=== PATIENT | male | born 1980 | race Caucasian/White ===

== ENCOUNTER 2019-05-03 19:44 | Emergency (ER) | payer SELFPAY ==
[~2019-05-03] VITALS: Ht 175.3 cm; Wt 99.8 kg
[~2019-05-03 19:44] MED LIST: KETO10 PO
[2019-05-03] MEDS ORDERED: Baclofen10 MG PO (20:40)
== END 2019-05-03 20:44 | disposition home or self-care (01) ==
LOC: ER 19:44
DX: S46.001A Unspecified injury of muscle(s) and tendon(s) of the rotator cuff of right shoulder, initial encounter (principal); F17.220 Nicotine dependence, chewing tobacco, uncomplicated; W19.XXXA Unspecified fall, initial encounter
CPT/HCPCS: 73030; 96372; 99283-25; J1170

== ENCOUNTER 2019-12-15 22:30 | Emergency (ER) | payer OTHER ==
[~2019-12-15] VITALS: Ht 175.3 cm; Wt 104.3 kg
[~2019-12-15 22:30] MED LIST changes: +Baclofen10 MG PO
[2019-12-15 23:05] LABS: Source, Urine Clean Catch
[2019-12-15 23:18] LABS: Bilirubin, Urine Neg (Neg); Blood, Urine 5+ (Neg); Glucose Qualitative, Urine Neg (Neg); Ketones, Urine Neg (Neg); Leukocyte Esterase, Urine 3+ (Neg); Nitrite, Urine Neg (Neg); Protein, Urine Neg (Neg); Urobilinogen, Urine NORM (Normal)
[2019-12-15 23:27] LABS: Appearance, Urine Hazy (Clear); Color, Urine Pale Yellow (P-Yellow)
[2019-12-15 23:29] LABS: Red Blood Cells, Urine 0-2 /hpf (0-2); Squamous Epithelial Cells Rare /hpf (Few)
[2019-12-15 23:30] LABS: Bacteria Few /hpf
[2019-12-15] MEDS ORDERED: CEPH500 PO (23:49)
[2019-12-15] MEDS ORDERED: Pyridium100 MG PO (23:49)
== END 2019-12-16 00:10 | disposition home or self-care (01) ==
LOC: ER 22:30
PROVIDERS: Emergency Medicine
DX: N30.91 Cystitis, unspecified with hematuria (principal); Z87.891 Personal history of nicotine dependence
CPT/HCPCS: 81001; 87077; 87086; 87186; 99283; A9270-GY

== ENCOUNTER 2019-12-16 22:19 | Emergency (ER) | payer OTHER ==
[~2019-12-16] VITALS: Ht 175.3 cm; Wt 104.3 kg
[~2019-12-16 22:19] MED LIST changes: +CEPH500 PO; +Pyridium100 MG PO
== END 2019-12-17 01:20 | disposition home or self-care (01) ==
LOC: ER 22:19
DX: N45.1 Epididymitis (principal); F17.220 Nicotine dependence, chewing tobacco, uncomplicated
CPT/HCPCS: 76870; 96372; 99284-25; A9270; A9270-GY; J1885

== ENCOUNTER 2022-08-30 20:26 | Emergency (ER) | payer OTHER ==
[~2022-08-30] VITALS: Ht 175.3 cm; Wt 81.7 kg
[2022-08-31 07:18] LABS: Source, Urine Clean Catch
[2022-08-31 07:21] LABS: Appearance, Urine Clear (Clear); Bilirubin, Urine Neg (Neg); Blood, Urine 1+ (Neg); Color, Urine Yellow (P-Yellow); Glucose Qualitative, Urine Neg (Neg); Ketones, Urine Neg (Neg); Leukocyte Esterase, Urine Neg (Neg); Nitrite, Urine Neg (Neg); Protein, Urine Neg (Neg); Urobilinogen, Urine NORM (Normal)
[2022-08-31 07:26] LABS: BASOPHILS PERCENT AUTO 1 % (0-2); EOSINOPHILS ABSOLUTE AUTO 0.22 K/mm3 (0.00-0.68); EOSINOPHILS PERCENT AUTO 2 % (0-6); Hematocrit 41.3 % (37.0-53.0); Hemoglobin 14.4 g/dL (13.5-17.5); IMMATURE GRAN ABSOLUTE AUTO 0.05 K/mm3 (0.00-0.10); IMMATURE GRAN PERCENT AUTO 0 % (0-1); LYMPHOCYTES PERCENT AUTO 26 % (21-46); MONOCYTES ABSOLUTE AUTO 1.11 K/mm3 (0.16-1.47); MONOCYTES PERCENT AUTO 9 % (4-13); Mean Corpuscular HGB 33.2 pg (26.0-34.0); Mean Corpuscular HGB Conc 34.9 g/dL (31.5-36.5); Mean Corpuscular Volume 95 fL (80-100); NEUTROPHILS ABSOLUTE AUTO 8.18 K/mm3 (1.96-9.15); NEUTROPHILS PERCENT AUTO 63 % (41-73); Platelet Count 308 K/mm3 (150-400); RDW Coefficient Variation 12.7 % (11.7-14.2); RDW Standard Deviation 44.5 fL (35.1-46.3); Red Blood Cell Count 4.34 M/mm3 (4.30-5.90); White Blood Cell Count 12.96 K/mm3 (4.00-11.30)
[2022-08-31 07:29] LABS: Bacteria Rare /hpf; Red Blood Cells, Urine 0-2 /hpf (0-2); Squamous Epithelial Cells Rare /hpf (Few); White Blood Cells, Urine 0-2 /hpf (0-5)
[2022-08-31 07:32] LABS: Albumin, Blood 3.8 g/dL (3.4-5.0); Albumin/Globulin Ratio 1.1 (0.8-1.8); Bilirubin, Total 0.3 mg/dL (0.1-1.0); Bun/Creatinine Ratio 20.1 (12.0-20.0); Creatinine, Blood 0.65 mg/dL (0.60-1.20); Globulin, Blood 3.5 g/dL (2.2-4.0); Potassium, Blood 4.4 mmol/L (3.5-5.5); Thyroid Stimulating Hormone 2.99 uIU/mL (0.360-4.800); Total Protein, Blood 7.3 g/dL (6.4-8.2)
[2022-08-31 07:36] LABS: U Amphetamine Screen Not Detected; U Barbituate Screen Not Detected; U Benzodiazapine Screen Not Detected; U Buprenorphine Screen Not Detected; U Cannabinoids Screen DETECTED; U Cocaine Screen Not Detected; U Methadone Screen Not Detected; U Methamphetamine Screen Not Detected; U Opiates Screen Not Detected; U Oxycodone Screen Not Detected; U Phencyclidine Screen Not Detected; U Propoxyphene Screen Not Detected
== END 2022-08-31 09:15 | disposition left against medical advice (07) ==
LOC: ER 20:26
PROVIDERS: Emergency Medicine; Student in an Organized Health Care Education/Training Program
DX: F22 Delusional disorders (principal); Z53.29 Procedure and treatment not carried out because of patient's decision for other reasons; F43.10 Post-traumatic stress disorder, unspecified; R47.89 Other speech disturbances; F17.220 Nicotine dependence, chewing tobacco, uncomplicated
CPT/HCPCS: 36415; 80053; 81001; 84443; 85025; 99283